=== PATIENT | female | born 1985 | race American Indian/Alaskan Native ===

== ENCOUNTER 2021-08-03 02:16 | Emergency (ER) | payer SELFPAY ==
[2021-08-03] MEDS ORDERED: THIAMINE 100 MG in SODIUM CHLORIDE 0.9% 50 ML IV ONE (02:29)
[2021-08-03] MEDS ORDERED: SODIUM CHLORIDE 0.9% 1000 ML 1,000 ML IV ONE (02:29)
[2021-08-03] MEDS ORDERED: MULTIVITAMINS ,THERAPEUTIC TAB PO ONE (02:29)
--- NOTE | 2021-08-03 02:29 | Emergency Department Report ---
ED Alcohol HPI - General Stated Complaint: ETOH/DEPENDENCE Time Seen by Provider: 08/03/21 02:25 - History of Present Illness Initial Comments: Patient brought in because of alcohol abuse. EMS was called by friends and family because the patient was drunk. They have no idea how much she has had to drink. She reportedly wanted to get help. She has been drunk and having alcohol-related problems for the last 6+ years. She has been in and out of [facility] numerous times. The longest time she has been sober was 1-1/2 years. She did have alcohol-related seizures with that episode of sobriety. Her drink of choice is vodka. Her last drink was prior to arrival. She is not suicidal or homicidal. She has no reports of hallucinations. She does take some vitamins and magnesium and took those tonight because she did not want to see his. Patient states that she just wants help. - Related Data Allergies Allergy/AdvReac Type Severity Reaction Status Date / Time No Known Allergies Allergy Verified 08/03/21 03:03 ED Review of Systems ROS: Stated complaint: ETOH/DEPENDENCE Other details as noted in HPI Comment: All other systems reviewed and negative Constitutional: denies: fever Eyes: denies: vision change ENT: denies: throat pain Respiratory: denies: cough Cardiovascular: denies: chest pain Endocrine: denies: unexplained weight loss Gastrointestinal: abdominal pain (Liver issues associated with alcohol abuse) Genitourinary: denies: dysuria Musculoskeletal: denies: back pain Skin: denies: rash Neurological: denies: headache Psychiatric: denies: suicidal thoughts Hematological/Lymphatic: denies: easy bruising ED Past Medical Hx - Past Medical History Previous Medical History?: Yes Additional medical history: Alcoholism - Family History Family history: hypertension - Social History Substance Use Type: Alcohol ED Physical Exam - General Limitations: No Limitations (She is clinically intoxicated.), Other (Pulse ox noted and normal) General appearance: alert, in no apparent distress - Head Head exam: Present: atraumatic, normocephalic, normal inspection - Eye Eye exam: Present: normal appearance, EOMI. Absent: scleral icterus - ENT ENT exam: Present: mucous membranes dry, normal external ear exam - Neck Neck exam: Present: normal inspection. Absent: meningismus - Respiratory Respiratory exam: Present: normal lung sounds bilaterally. Absent: respiratory distress - Cardiovascular Cardiovascular Exam: Present: regular rate, normal rhythm - GI/Abdominal GI/Abdominal exam: Present: soft. Absent: tenderness - Extremities Exam Extremities exam: Present: normal capillary refill - Back Exam Back exam: Absent: CVA tenderness (R), CVA tenderness (L) - Neurological Exam Neurological exam: Present: alert, oriented X3, CN II-XII intact, other (Moderate dysarthria consistent with alcohol intoxication). Absent: motor sensory deficit - Psychiatric Psychiatric exam: Present: other (Tearful) - Skin Skin exam: Present: warm, dry ED Course Vital Signs 08/03/21 08/03/21 08/03/21 03:03 04:09 04:10 Temperature 97.4 F L Pulse Rate 97 H Respiratory 18 Rate Blood Pressure 96/53 Blood Pressure 92/69 [Right] O2 Sat by Pulse 97 97 97 Oximetry 08/03/21 08/03/21 08/03/21 04:14 05:00 05:10 Temperature Pulse Rate Respiratory Rate Blood Pressure 100/58 100/58 Blood Pressure [Right] O2 Sat by Pulse 98 96 98 Oximetry 08/03/21 08/03/21 05:30 05:40 Temperature Pulse Rate Respiratory Rate Blood Pressure 104/64 104/64 Blood Pressure [Right] O2 Sat by Pulse 99 100 Oximetry - Reevaluation(s) Reevaluation #1: 08/03/21 02:28 EMS was met upon arrival. IV labs ordered. Old records reviewed. Reevaluation #2: 08/03/21 02:56 Patient is now refusing IV and lab work. Reevaluation #3: 08/03/21 05:07 hCG was noted. Blood alcohol was noted. Quant and ultrasound have been added. Reevaluation #4: 08/03/21 05:56 Quant is noted. Ultrasound is pending. Care was signed out pending ultrasound and sobriety. ED Medical Decision Making - Lab Data Result diagrams: 08/03/21 Unknown 08/03/21 Unknown Rhythm strip: Normal sinus rhythm without ectopy per monitor observe 10 seconds. - Medical Decision Making Patient presented by ambulance with acute alcohol tox occasion. Incidentally, she was found to have a positive test. Given her quant, this could pillowcase turner to be a chemical . Regardless, she will require ongoing observation. There is no metabolic derangement. She is not suicidal homicidal. She will be reevaluated once sober for disposition. Critical Care Time: No Critical care attestation.: If time is entered above; I have spent that time in minutes in the direct care of this critically ill patient, excluding procedure time. ED Disposition Clinical Impression: Alcohol abuse Qualifiers: Weeks of gestation: unspecified Qualified Code(s): Z34.90 - Encounter for supervision of normal , unspecified, unspecified trimester Disposition: 30 STILL A PATIENT Is pt being admited?: No Condition: Stable Referrals: PRIMARY CARE [Primary Care Provider] - 3-5 Days
[2021-08-03] MEDS ORDERED: FOLIC ACID 1 MG in SODIUM CHLORIDE 0.9% 50 ML IV ONE (02:30)
[2021-08-03 03:58] LABS: Hematocrit 40.3 % (30.3-42.9); Hemoglobin 13.9 gm/dl (10.1-14.3); Mean Corpuscular HGB Conc 34 % (30-34); Mean Corpuscular Volume 92 fl (79-97); Platelet Count 189 K/mm3 (140-440); Red Blood Count 4.37 M/mm3 (3.65-5.03); Red Cell Distribution Width 15.7 % (13.2-15.2)
[2021-08-03 04:46] LABS: Alanine Aminotransferase 26 units/L (7-56); Albumin 4.5 g/dL (3.9-5); BUN/Creatinine Ratio 10; Blood Urea Nitrogen 8 mg/dL (7-17); Hemolysis Index 104
--- NOTE | 2021-08-03 07:16 | Ultrasound Report ---
ULTRASOUND OBSTETRIC INDICATION / CLINICAL INFORMATION: . Positive hCG Clinical Gestational Age (GA) in weeks, days: LMP unknown TECHNIQUE: Transabdominal. COMPARISON: None available. FINDINGS: GESTATIONAL SAC: No intrauterine gestational sac YOLK SAC: None visualized EMBRYO/FETUS: None visualized UTERUS: Uterus has a normal appearance measuring 8.9 x 4.0 x 4.5 cm with endometrial stripe thickness of 0.5 cm. ADNEXA: 2.2 cm simple appearing right ovarian cyst. Left ovary appears normal. FREE FLUID: None. ADDITIONAL FINDINGS: None. IMPRESSION: 1. No intrauterine . 2. 2.2 cm simple appearing right ovarian cyst. Signer Name: Chen Malhotra MD Signed: 08/03/2021 7:12 AM Workstation Name: [id number]
[2021-08-03 15:39] VITALS: BP 108/62
== END 2021-08-03 15:39 | disposition still patient (30) ==
LOC: ED 02:16
DX: O26.899 Other specified pregnancy related conditions, unspecified trimester (principal); F10.10 Alcohol abuse, uncomplicated; Z3A.00 Weeks of gestation of pregnancy not specified
CPT/HCPCS: 36415; 76801; 80053; 83735; 84702; 84703; 85027; 96365; 96375; 99285; J3411; J7030; 80320; G0480

== ENCOUNTER 2022-04-12 17:53 | Emergency (ER) | payer SELFPAY ==
[2022-04-12 18:10] VITALS: BP 136/90
== END 2022-04-12 19:55 | disposition left against medical advice (07) ==
LOC: ED 17:53
DX: F10.239 Alcohol dependence with withdrawal, unspecified (principal); Z53.21 Procedure and treatment not carried out due to patient leaving prior to being seen by health care provider